=== PATIENT | female | born 1955 | race African-American/Black ===

== ENCOUNTER 2018-10-19 20:34 | Emergency (ER) | payer BC ==
[~2018-10-19] VITALS: Ht 165.1 cm; Wt 77.1 kg
[2018-10-19] MEDS ORDERED: MORPHINE SULFATE 4 MG/ML SYR/VIAL IV ONE (23:30)
[2018-10-19] MEDS ORDERED: ONDANSETRON HCL 4 MG/2 ML VIAL IV ONE (23:30)
[2018-10-19] MEDS ORDERED: HYDROcodone-ACET 10/325MG TAB PO ONE (23:45)
[2018-10-20] MEDS ORDERED: ETOMIDATE (2MG/ML) 20ML VIAL IV ONE (00:05)
[2018-10-20] MEDS ORDERED: SUCCINYLCHOLINE CHLORIDE 20 MG/ML 10ML VIAL IV ONE (00:15)
[2018-10-20 01:25] VITALS: BP 145/67
== END 2018-10-20 03:12 | disposition home or self-care (01) ==
LOC: ER 20:41
DX: S03.02XA Dislocation of jaw, left side, initial encounter (principal); E11.9 Type 2 diabetes mellitus without complications; E78.5 Hyperlipidemia, unspecified; I10 Essential (primary) hypertension; Z88.6 Allergy status to analgesic agent; Z88.0 Allergy status to penicillin; X58.XXXA Exposure to other specified factors, initial encounter; Y93.89 Activity, other specified; Y99.8 Other external cause status; Y92.89 Other specified places as the place of occurrence of the external cause
CPT/HCPCS: 21480; 70486; 94761; 96374; 99285; J0330; J2270; J2405